=== PATIENT | female | born 1945 | race African-American/Black ===

== ENCOUNTER 2016-11-09 20:07 | Emergency (ER) | payer MEDICARE, OTHER ==
[~2016-11-09] VITALS: Ht 170.2 cm; Wt 92.1 kg
[~2016-11-09 20:07] MED LIST: ASPI-482 PO; ATOR10TA PO; FAMO-63 PO; SIMV20TA PO; VALS1TAB3 PO
[2016-11-09 21:17] LABS: BILIRUBIN,URINE NEGATIVE (NEG); GLUCOSE,URINE NEGATIVE (NEG); NITRITE,URINE POSITIVE (NEG); PROTEIN,URINE 30 mg/dL (NEG-TRACE)
[2016-11-09 21:25] LABS: BACTERIA,URINE MANY /HPF (0-FEW); RBC,URINE 0 /HPF (0-2); SQUAMOUS EPITHELIAL CELL,UR FEW /LPF; WBC,URINE >40 /HPF (0-4)
[2016-11-09 21:41] VITALS: BP 184/84
[2016-11-09] MEDS ORDERED: LOSA50TA6 PO (22:03)
[2016-11-09] MEDS ORDERED: NITR100C PO (22:03)
[2016-11-09] MEDS ORDERED: HYDR12.58 PO (22:03)
--- NOTE | 2016-11-09 22:03 | PHYS DOC ---
Past Medical History Past Medical History: GERD, High Cholesterol, Hypertension Past Surgical History: Other Additional Past Surgical Histo: spinal fusion and reversal, STRIPPED VERICOSE VEINS 10+ YEARS AGO RIGHT LEG Alcohol Use: None Drug Use: None Adult General Chief Complaint Chief Complaint: URINARY FREQUENCY [facility] HPI Patient is a 71 year old female presents emergency Department today with essentially 2 complaints: 1. Patient states she's been out of her blood pressure medication for 5 days. Patient typically takes losartan 50 mg by mouth twice a day and hydrochlorothiazide 12.5 mg by mouth daily. She states that she' s been having a "low-grade headache" for the past 2 days. She states this is usually what happens when she's been out of her blood pressure medication. Patient states that she recently moved back to this area from [facility] and has not been able to establish a primary care doctor. 2. Patient is a complaint of increased urinary frequency and dysuria for approximately 5 days as. She denies flank pain or fevers. She denies nausea or vomiting. Patient has antibiotic use within the past 90 days. Patient states that she does have urinary tract infections 2-3 times a year. Review of Systems Review of Systems Constitutional: Denies fever or chills [] Eyes: Denies change in visual acuity, redness, or eye pain [] HENT: Denies nasal congestion or sore throat [] Respiratory: Denies cough or shortness of breath [] Cardiovascular: No additional information not addressed in HPI [] GI: Denies abdominal pain, nausea, vomiting, bloody stools or diarrhea [] : Denies dysuria or hematuria [] Musculoskeletal: Denies back pain or joint pain [] Integument: Denies rash or skin lesions [] Neurologic: Denies headache, focal weakness or sensory changes [] Endocrine: Denies polyuria or polydipsia [] Allergies Allergies Allergies Coded Allergies Type Severity Reaction Last Updated Verified No Known Drug Allergies 03/09/14 No Physical Exam Physical Exam Constitutional: Well developed, well nourished, no acute distress, non-toxic appearance. HENT: Normocephalic, atraumatic, bilateral external ears normal, oropharynx moist, no oral exudates, nose normal. [] Eyes: PERRLA, EOMI, conjunctiva normal, no discharge. Neck: Normal range of motion, no tenderness, supple, no stridor. [] Cardiovascular:Heart rate regular rhythm, no murmur Lungs & Thorax: Bilateral breath sounds clear to auscultation [] Abdomen: Bowel sounds normal, soft, no tenderness, no masses, no pulsatile masses. [] Skin: Warm, dry, no erythema, no rash. [] Back: No tenderness, no CVA tenderness. [] Extremities: No tenderness, no cyanosis, no clubbing, ROM intact, no edema. [] Neurologic: Alert and oriented X 3, cranial nerves II through XII are intact. Patient is able perform rapid alternating movement and show without difficulty. Patient ambulates with a steady, unaided gait. Psychologic: Affect normal, judgement normal, mood normal. [] Current Patient Data Vital Signs Vital Signs Date Time Temp Pulse Resp B/P Pulse Ox O2 Delivery O2 Flow Rate FiO2 11/09/16 21:41 97.9 81 18 184/84 99 Room Air 97.9 Lab Values Laboratory Tests Test 11/09/16 20:10 Urine Collection Type Unknown Urine Color Yellow Urine Clarity Clear Urine pH 6.0 Urine Specific Neptune 1.025 Urine Protein 30mg/dL (NEG-TRACE) Urine Glucose (UA) Negativemg/dL (NEG) Urine Ketones (Stick) Tracemg/dL (NEG) Urine Blood Negative (NEG) Urine Nitrite Positive (NEG) Urine Bilirubin Negative (NEG) Urine Urobilinogen Dipstick 1.0mg/dL (0.2 mg/dL) Urine Leukocyte Esterase Moderate (NEG) Urine RBC 0/HPF (0-2) Urine WBC >40/HPF (0-4) Urine Squamous Epithelial Cells Few/LPF Urine Bacteria Many/HPF (0-FEW) Urine Mucus Mod/LPF EKG EKG [] Radiology/Procedures Radiology/Procedures [] Course & Med Decision Making Course & Med Decision Making Pertinent Labs and Imaging studies reviewed. (See chart for details) [] Dragon Disclaimer Dragon Disclaimer This electronic medical record was generated, in whole or in part, using a voice recognition dictation system. Departure Departure Impression: Primary Impression: UTI (urinary tract infection) Additional Impressions: Essential hypertension Medication refill Disposition: HOME, SELF-CARE Condition: STABLE Referrals: NO PCP (PCP) Patient Instructions: Hypertension, [id number], Medication Refill, Emergency Department, Urinary Tract Infection, [id number] Additional Instructions: 1. Take the medication as prescribed. 2. Review the discharge instructions provided for self-care and reasons to return to the emergency department. 3. Use the pamphlet provided for assistance in finding a primary care doctor to address your medical concerns. Your previous primary care doctor, Dr. Corona, is listed in this pamphlet. Scripts Nitrofurantoin Macrocrystal (Nitrofurantoin)100 Mg Capsule1 Cap PO BID urinary tract infection #14 CAP Prov:PAMELA FARR 11/09/16 Losartan Potassium 50 Mg Pzycpd35 Mg PO twice a day hypertension #60 TAB Ref 1 Prov:PAMELA FARR 11/09/16 Hydrochlorothiazide (Hydrochlorothiazide Tablet)12.5 Mg Tablet1 Tab PO DAILY # 30 TAB Ref 1 Prov:PAMELA FARR 11/09/16 Problem Qualifiers PAMELA FARR Nov 09, 2016 22:03
== END 2016-11-09 22:15 | disposition home or self-care (01) ==
LOC: ER 20:07
DX: N39.0 Urinary tract infection, site not specified (principal); I10 Essential (primary) hypertension; E78.00 Pure hypercholesterolemia, unspecified; K21.9 Gastro-esophageal reflux disease without esophagitis; Z76.0 Encounter for issue of repeat prescription
CPT/HCPCS: 81001; 87086; 99284